=== PATIENT | female | born 1945 | race Caucasian/White ===

== ENCOUNTER 2018-05-05 08:58 | Observation (INO) ==
[2018-05-05] MEDS ORDERED: Sod Chloride 0.9% Inj 1,000 ML IV.CONT SCH (10:30)
--- NOTE | 2018-05-05 10:41 | XR ---
EXAM DATE: 05/05/2018 10:38 AM EDT AGE/SEX: 73 years / Female INDICATIONS: . Double vision for 4 days. CLINICAL DATA: This is the patient's initial encounter. Patient reports that signs and symptoms have been present for 4 - 6 days and indicates a pain score of 0/10. MEDICAL/SURGICAL HISTORY: None. None. COMPARISON: No prior exams available for comparison. FINDINGS: A single AP view of the chest demonstrates the lungs to be symmetrically aerated without evidence of mass, infiltrate or effusion. The cardiomediastinal contours are unremarkable. Osseous structures a re intact. CONCLUSION: No acute intrathoracic disease. Electronically signed by: Dimitry Restrepo MD 05/05/2018 10:40 AM EDT
[2018-05-05 11:19] LABS: Hematocrit 45.4 % (35.0-46.0); Hemoglobin 15.9 gm/dL (11.6-15.3); Mean Corpuscular HGB Conc 35.1 % (32.0-36.0); Mean Corpuscular Hemoglobin 32.9 pg (27.0-34.0); Mean Corpuscular Volume 93.6 fL (80.0-100.0); Mean Platelet Volume 9.7 fL (7.0-11.0); Platelet Count 344 th/mm3 (150-450); Red Blood Count 4.85 mil/mm3 (4.00-5.30); Red Cell Distribution Width 14.4 % (11.6-17.2); White Blood Count 9.7 th/mm3 (4.0-11.0)
[2018-05-05 11:20] LABS: Baso # (Auto) 0.1 th/mm3 (0.0-0.2); Baso % (Auto) 1.3 % (0.0-2.0); Eos # (Auto) 0.4 th/mm3 (0.0-0.4); Eos % (Auto) 4.1 % (0.0-4.0); Lymph % (Auto) 30.4 % (9.0-44.0); Mono % (Auto) 10.7 % (0.0-8.0); Neut # (Auto) 5.2 th/mm3 (1.8-7.7); Neut % (Auto) 53.5 % (16.0-70.0)
[2018-05-05 11:27] LABS: Activated Partial Thrombo Time 27.3 sec (24.3-30.1); Prothrombin Time 10.2 sec (9.8-11.6)
--- NOTE | 2018-05-05 11:30 | CT ---
EXAM DATE: 05/05/2018 11:27 AM EDT AGE/SEX: 73 years / Female INDICATIONS: Headache with double vision. CLINICAL DATA: This is the patient's initial encounter. Patient reports that signs and symptoms have been present for 4 - 6 days and indicates a pain score of 0/10. MEDICAL/SURGICAL HISTORY: Hypertension. Hypothyroidism. None. RADIATION DOSE: 56.77 CTDI (mGy) COMPARISON: No prior exams available for comparison. TECHNIQUE: CT of the head without contrast. Using automated exposure control and adjustment of the mA and/or kV according to patient size, radiation dose was kept as low as reasonably achievable to ob tain optimal diagnostic quality images. DICOM format image data is available electronically for revi ew and comparison. FINDINGS: Cerebrum: The ventricles are normal for age. No evidence of midline shift, mass lesion, hemorrhage or acute infarction. No extraaxial fluid collections are seen. Posterior Fossa: The cerebellum and brainstem are intact. The 4th ventricle is midline. The cerebe llopontine angle is unremarkable. Extracranial: The visualized portion of the orbits is intact. Skull: The calvaria is intact. No evidence of skull fracture. CONCLUSION: 1. Unremarkable CT scan of the brain. Electronically signed by: Dimitry Restrepo MD 05/05/2018 11:29 AM EDT
[2018-05-05 11:44] LABS: Anion Gap 8 meq/L (5-15); Blood Urea Nitrogen 18 mg/dL (7-18); Calcium 9.7 mg/dL (8.5-10.1); Carbon Dioxide 25.6 meq/L (21.0-32.0); Chloride 105 meq/L (98-107); Creatine Kinase 143 U/L (26-192); Glomerular Filtration Rate 66 mL/min (>89); Glucose,Random 77 mg/dL (74-106); Potassium 4.6 meq/L (3.5-5.1); Sodium 139 meq/L (136-145)
[2018-05-05 11:56] LABS: Creatine Kinase MB 1.5 ng/mL (0.5-3.6)
--- NOTE | 2018-05-05 15:07 | ED ---
HPI General Chief Complaint: Neuro Symptoms/Deficit Stated Complaint: Headache / double vision Time Seen by Provider: 05/05/18 10:10 Source: patient and family Mode of arrival: ambulatory Limitations: no limitations History of Present Illness HPI Narrative: The patient is a 73-year-old female with past medical history significant for hypertension, hypercholesterolemia, hypothyroid and GERD presenting with complaint of diplopia and visual disturbances that she not really describe for the past 4 days. She says that the symptoms come and go sometimes last a few seconds sometimes several minutes. She denies any diplopia at point of care at this time. Patient stated that" when I am walking there is something wrong and I have difficulty with depth perception". The patient saw her bog worker yesterday had an evaluation and was told that her eyes were clear. She does have photophobia. She was told that her intraocular pressure was normal Related Data Home Medications Medication Instructions Recorded Confirmed ascorbic acid (vitamin C) [Vitamin 500 mg PO DAILY 05/05/18 05/05/18 C] aspirin [Aspir-81] 81 mg PO DAILY 05/05/18 05/05/18 calcium carbonate [Calcium 500] 500 mg PO BID 05/05/18 05/05/18 ibandronate 70 mg PO QMONTH 05/05/18 05/05/18 levothyroxine 50 mcg PO DAILY 05/05/18 05/05/18 losartan 50 mg PO DAILY 05/05/18 05/05/18 omeprazole 40 mg PO DAILY 05/05/18 05/05/18 propranolol 20 mg PO BID 05/05/18 05/05/18 rosuvastatin 20 mg PO DAILY 05/05/18 05/05/18 Previous Rx's Medication Instructions Recorded clopidogrel [Plavix] 75 mg PO DAILY #30 tab 05/06/18 Allergies Allergy/AdvReac Type Severity Reaction Status Date / Time No Known Allergies Allergy Unverified 05/05/18 09:17 Review of Systems ROS Unobtainable All other systems reviewed negative except as stated in HPI Constitutional Denies fever(s), Denies headache(s) and Denies malaise Eyes Denies blurry vision, Denies change in vision, Reports diplopia, Denies dry eyes , Denies loss of vision, Reports photophobia and Reports other ENT Denies headache(s) and Denies nasal congestion Cardiovascular Denies chest pain Respiratory Denies dyspnea Gastrointestinal Denies abdominal pain Genitourinary Denies difficulty voiding Musculoskeletal Denies myalgias Integumentary/Breasts Denies rash Neurologic Denies headache(s) Psychiatric Denies depression Endocrine Denies polyuria Hematologic/Lymphatic Denies easy bruising [facility] Medical History Medical History FH: cholecystectomy (Acute) GERD (gastroesophageal reflux disease) (Acute) Gastroduodenitis (Acute) Hernia (Acute) Hyperchloremia (Acute) Hypertension (Acute) Hypothyroid (Acute) Right humeral fracture (Acute) Broken wrist (Acute) Heart murmur (Acute) Surgical History Surgical History H/O section (Acute) H/O splenectomy (Acute) History of tonsillectomy (Acute) Hx of appendectomy (Acute) Family History Family History Mother Heart disease Father Heart disease Social History Social History Substance History: No History of Abuse Second Hand Smoke Exposure: No Smoking Status: Former smoker How Often Do You Have a Drink Containing Alcohol: 2 to 3 times a week Recent Travel in [facility] within the Last 8 Weeks: Yes Immunization History Tetanus Immunization: >5 Years Hx Influenza Vaccine This Season: Yes Exam [facility] Head: normocephalic and atraumatic Nose: no nasal discharge and no epistaxis Mouth: moist mucous membranes Eyes Sclera: normal sclerae Pupils: PERRL Neck Neck: trachea midline and no JVD Resp Effort & Inspection: no use of accessory muscles Auscultation: clear to auscultation bilaterally Cardio Rate: regular rate Rhythm: regular rhythm Heart Sounds: no murmurs GI Inspection: non-distended Palpation: soft, no hepatosplenomegaly and nontender Skin General: dry skin (warm) Neuro General: alert, awake, oriented x3, moves all extremities, normal light touch, pain and propioception, no meningeal signs, no focal motor deficits, CN's II-XI intact bilaterally and normal sensation to monofilament Cranial Nerves: CN's II-XI intact bilaterally, PERRL, accommodation normal, EOM intact bilaterally, tongue midline, Symmetric palate elevation and other Speech: speech normal Gait: normal gait Motor: muscle tone normal throughout and no movement abnormalities noted Sensory Exam: no sensory deficits noted Extrem General: normal to inspection, no clubbing, no cyanosis and no edema Psych Mood: congruent mood Affect: normal affect Judgment: judgment good Course Reevaluation(s) Reevaluation #1: Patient was stable vitals. Hypertension did improve latest BP is 128/64. She does have diplopia at times that resolves lasting anywhere from a few seconds to a couple minutes. Time: 14:36 Initial Documented Vital Signs Temperature 97.7 F 05/05/18 09:03 Pulse Rate 72 05/05/18 09:03 Respiratory Rate 20 05/05/18 09:03 Blood Pressure 189/81 H 05/05/18 09:03 Pulse Oximetry 95 05/05/18 09:03 Last Documented Vital Signs Temperature 97.7 F 05/06/18 00:59 Pulse Rate 70 05/06/18 08:00 Respiratory Rate 18 05/06/18 00:59 Blood Pressure 132/62 05/06/18 00:59 Pulse Oximetry 94 L 05/06/18 08:00 Critical Care Time Critical Care Time: No Total Critical Care Time: 30 NIH Stroke Scale NIHSS Time Completed NIHSS Time Completed: 10:11 NIH Stroke Scale Level of Consciousness: 0-Alert Orientation Questions: 0-Answers both correct Responds to Commands: 0-Both tasks correct Gaze Eye Movement: 0-Horizontal movement WNL Visual Borden: 0-No visual field defect Facial Movement: 0-Normal Motor Functions Arm LEFT: 0-No drift Motor Functions Arm RIGHT: 0-No drift Motor Functions Leg LEFT: 0-No drift Motor Functions Leg RIGHT: 0-No drift Limb Ataxia: 0-No ataxia Sensory Loss: 0-No sensory loss Best Language: 0-Normal Articulation: 0-Normal Extinction or Inattention Sensory: 0-Absent Total: 0 Medical Decision Making MDM Narrative Medical decision making narrative: Intermittent double vision with a negative initial evaluation with CT head. Labs unremarkable. Due to persistence of symptoms will admit the patient and have her evaluated by neurology. Symptoms started 4 days ago the patient is not a TPA candidate. MRI ORDERED AND RESULTS ARE PENDING AT THIS TIME Lab Data Lab results reviewed: Yes I reviewed the patient's lab results. Result diagrams: 05/05/18 09:30 05/05/18 09:30 Lab Results 05/05/18 05/05/18 05/05/18 Range/Units 09:30 09:30 09:30 WBC 9.7 (4.0-11.0) th/mm3 RBC 4.85 (4.00-5.30) mil/mm3 Hgb 15.9 H (11.6-15.3) gm/dL Hct 45.4 (35.0-46.0) % MCV 93.6 (80.0-100.0) fL MCH 32.9 (27.0-34.0) pg MCHC 35.1 (32.0-36.0) % RDW 14.4 (11.6-17.2) % Plt Count 344 (150-450) th/mm3 MPV 9.7 (7.0-11.0) fL Neut % (Auto) 53.5 (16.0-70.0) % Lymph % (Auto) 30.4 (9.0-44.0) % [place] % (Auto) 10.7 H (0.0-8.0) % Eos % (Auto) 4.1 H (0.0-4.0) % Baso % (Auto) 1.3 (0.0-2.0) % Neut # (Auto) 5.2 (1.8-7.7) th/mm3 Lymph # (Auto) 3.0 (1.0-4.8) th/mm3 [place] # (Auto) 1.0 H (0.0-0.9) th/mm3 Eos # (Auto) 0.4 (0.0-0.4) th/mm3 Baso # (Auto) 0.1 (0.0-0.2) th/mm3 WBC Differential . Differential Comment Auto diff final ESR (0-30) mm/hr PT 10.2 (9.8-11.6) sec INR 1.0 Ratio APTT 27.3 (24.3-30.1) sec Sodium 139 (136-145) meq/L Potassium 4.6 (3.5-5.1) meq/L Chloride 105 (98-107) meq/L Carbon Dioxide 25.6 (21.0-32.0) meq/L Anion Gap 8 (5-15) meq/L BUN 18 (7-18) mg/dL Creatinine 0.85 (0.50-1.00) mg/dL Estimated GFR 66 L (>89) mL/min POC Glucose (68-110) mg/dl Random Glucose 77 (74-106) mg/dL Hemoglobin A1c (4.3-6.0) % Calcium 9.7 (8.5-10.1) mg/dL Total Creatine Kinase 143 (26-192) U/L CK-MB (CK-2) 1.5 (0.5-3.6) ng/mL Troponin I Less than 0.02 L (0.02-0.05) ng/mL C-Reactive Protein (0.00-0.30) mg/dL Triglycerides (42-150) mg/dL Cholesterol (120-200) mg/dL LDL Cholesterol, Calc (0-99) mg/dL HDL Cholesterol (40.0-60.0) mg/dL Cholesterol/HDL Ratio Ratio Vitamin B12 (193-986) pg/mL TSH (0.358-3.740) uIU/mL Thyroxine (T4) (4.8-13.9) mcg/dL RPR (Nonreactive) 05/05/18 05/05/18 05/05/18 Range/Units 09:30 09:30 09:30 WBC (4.0-11.0) th/mm3 RBC (4.00-5.30) mil/mm3 Hgb (11.6-15.3) gm/dL Hct (35.0-46.0) % MCV (80.0-100.0) fL MCH (27.0-34.0) pg MCHC (32.0-36.0) % RDW (11.6-17.2) % Plt Count (150-450) th/mm3 MPV (7.0-11.0) fL Neut % (Auto) (16.0-70.0) % Lymph % (Auto) (9.0-44.0) % [place] % (Auto) (0.0-8.0) % Eos % (Auto) (0.0-4.0) % Baso % (Auto) (0.0-2.0) % Neut # (Auto) (1.8-7.7) th/mm3 Lymph # (Auto) (1.0-4.8) th/mm3 [place] # (Auto) (0.0-0.9) th/mm3 Eos # (Auto) (0.0-0.4) th/mm3 Baso # (Auto) (0.0-0.2) th/mm3 WBC Differential Differential Comment ESR (0-30) mm/hr PT (9.8-11.6) sec INR Ratio APTT (24.3-30.1) sec Sodium (136-145) meq/L Potassium (3.5-5.1) meq/L Chloride (98-107) meq/L Carbon Dioxide (21.0-32.0) meq/L Anion Gap (5-15) meq/L BUN (7-18) mg/dL Creatinine (0.50-1.00) mg/dL Estimated GFR (>89) mL/min POC Glucose (68-110) mg/dl Random Glucose (74-106) mg/dL Hemoglobin A1c (4.3-6.0) % Calcium (8.5-10.1) mg/dL Total Creatine Kinase (26-192) U/L CK-MB (CK-2) (0.5-3.6) ng/mL Troponin I (0.02-0.05) ng/mL C-Reactive Protein 0.77 H (0.00-0.30) mg/dL Triglycerides (42-150) mg/dL Cholesterol (120-200) mg/dL LDL Cholesterol, Calc (0-99) mg/dL HDL Cholesterol (40.0-60.0) mg/dL Cholesterol/HDL Ratio Ratio Vitamin B12 961 (193-986) pg/mL TSH 2.390 (0.358-3.740) uIU/mL Thyroxine (T4) 12.3 (4.8-13.9) mcg/dL RPR (Nonreactive) 05/05/18 05/05/18 05/05/18 Range/Units 18:42 21:34 21:34 WBC (4.0-11.0) th/mm3 RBC (4.00-5.30) mil/mm3 Hgb (11.6-15.3) gm/dL Hct (35.0-46.0) % MCV (80.0-100.0) fL MCH (27.0-34.0) pg MCHC (32.0-36.0) % RDW (11.6-17.2) % Plt Count (150-450) th/mm3 MPV (7.0-11.0) fL Neut % (Auto) (16.0-70.0) % Lymph % (Auto) (9.0-44.0) % [place] % (Auto) (0.0-8.0) % Eos % (Auto) (0.0-4.0) % Baso % (Auto) (0.0-2.0) % Neut # (Auto) (1.8-7.7) th/mm3 Lymph # (Auto) (1.0-4.8) th/mm3 [place] # (Auto) (0.0-0.9) th/mm3 Eos # (Auto) (0.0-0.4) th/mm3 Baso # (Auto) (0.0-0.2) th/mm3 WBC Differential Differential Comment ESR 12 (0-30) mm/hr PT (9.8-11.6) sec INR Ratio APTT (24.3-30.1) sec Sodium (136-145) meq/L Potassium (3.5-5.1) meq/L Chloride (98-107) meq/L Carbon Dioxide (21.0-32.0) meq/L Anion Gap (5-15) meq/L BUN (7-18) mg/dL Creatinine (0.50-1.00) mg/dL Estimated GFR (>89) mL/min POC Glucose 118 H (68-110) mg/dl Random Glucose (74-106) mg/dL Hemoglobin A1c (4.3-6.0) % Calcium (8.5-10.1) mg/dL Total Creatine Kinase (26-192) U/L CK-MB (CK-2) (0.5-3.6) ng/mL Troponin I (0.02-0.05) ng/mL C-Reactive Protein (0.00-0.30) mg/dL Triglycerides (42-150) mg/dL Cholesterol (120-200) mg/dL LDL Cholesterol, Calc (0-99) mg/dL HDL Cholesterol (40.0-60.0) mg/dL Cholesterol/HDL Ratio Ratio Vitamin B12 (193-986) pg/mL TSH (0.358-3.740) uIU/mL Thyroxine (T4) (4.8-13.9) mcg/dL RPR Nonreactive (Nonreactive) 05/06/18 05/06/18 Range/Units 05:56 05:56 WBC (4.0-11.0) th/mm3 RBC (4.00-5.30) mil/mm3 Hgb (11.6-15.3) gm/dL Hct (35.0-46.0) % MCV (80.0-100.0) fL MCH (27.0-34.0) pg MCHC (32.0-36.0) % RDW (11.6-17.2) % Plt Count (150-450) th/mm3 MPV (7.0-11.0) fL Neut % (Auto) (16.0-70.0) % Lymph % (Auto) (9.0-44.0) % [place] % (Auto) (0.0-8.0) % Eos % (Auto) (0.0-4.0) % Baso % (Auto) (0.0-2.0) % Neut # (Auto) (1.8-7.7) th/mm3 Lymph # (Auto) (1.0-4.8) th/mm3 [place] # (Auto) (0.0-0.9) th/mm3 Eos # (Auto) (0.0-0.4) th/mm3 Baso # (Auto) (0.0-0.2) th/mm3 WBC Differential Differential Comment ESR (0-30) mm/hr PT (9.8-11.6) sec INR Ratio APTT (24.3-30.1) sec Sodium (136-145) meq/L Potassium (3.5-5.1) meq/L Chloride (98-107) meq/L Carbon Dioxide (21.0-32.0) meq/L Anion Gap (5-15) meq/L BUN (7-18) mg/dL Creatinine (0.50-1.00) mg/dL Estimated GFR (>89) mL/min POC Glucose (68-110) mg/dl Random Glucose (74-106) mg/dL Hemoglobin A1c 5.6 (4.3-6.0) % Calcium (8.5-10.1) mg/dL Total Creatine Kinase (26-192) U/L CK-MB (CK-2) (0.5-3.6) ng/mL Troponin I (0.02-0.05) ng/mL C-Reactive Protein (0.00-0.30) mg/dL Triglycerides 196 H (42-150) mg/dL Cholesterol 159 (120-200) mg/dL LDL Cholesterol, Calc 81 (0-99) mg/dL HDL Cholesterol 39.0 L (40.0-60.0) mg/dL Cholesterol/HDL Ratio 4.07 Ratio Vitamin B12 (193-986) pg/mL TSH (0.358-3.740) uIU/mL Thyroxine (T4) (4.8-13.9) mcg/dL RPR (Nonreactive) Imaging Data Radiologist's impression: Carotid Doppler Study 05/05/18 00:00 CONCLUSION: Mild atherosclerotic plaquing at the left carotid bifurcation. No focal high-grade or hemodynamically significant stenosis is demonstrated bilaterally. Head MRA 05/05/18 00:00 CONCLUSION: 1. Examination within normal limits for age. Neck MRA 05/05/18 00:00 CONCLUSION: 1. No hemodynamically significant stenosis in the carotid arteries bilaterally. Vertebral arteries are patent. Percent stenosis is calculated using the diameter of the stenotic region over the diameter of the normal distal internal carotid artery Chest X-Ray 05/05/18 10:23 CONCLUSION: No acute intrathoracic disease. Head CT 05/05/18 10:23 CONCLUSION: 1. Unremarkable CT scan of the brain. Head MRI 05/05/18 14:31 CONCLUSION: 1. No acute findings. Minimal white matter ischemic change. ECG Data Attestation: I personally reviewed and interpreted this ECG as follows: Interpretation: EKG obtained at 1441 revealed sinus rhythm with a first-degree block in the rate of 62 bpm. QTC of 420 normal VA intervals. Normal axis nonspecific ST-T wave abnormalities Discharge Plan Discharge Disposition Patient Disposition: 30 Still Patient Discharge Condition Condition: Stable Discharge Order Discharge Orders: Discharge Order (Routine); Ordered 05/06/18 Ordered By: Osmar Marsh Discharge Details Diagnosis: Transient cerebral ischemia Physicians Team ED Provider: Matthew Rodas Primary Care Provider: UNKNOWN, Attending Provider: Osmar Marsh Other Providers: Martín Crump Discharge Interventions Interventions: ED Discharge Assessment Last Done: 05/05/18 18:48 Status ED Status: Left Department Discharge Information Discharge Date/Time: 05/05/18 18:49
[2018-05-05] MEDS ORDERED: Enoxaparin Inj 40 MG/0.4 ML Syringe SQ SCH (16:00)
--- NOTE | 2018-05-05 16:09 | US ---
EXAM DATE: 05/05/2018 4:06 PM EDT AGE/SEX: 73 years / Female INDICATIONS: Transient ischemic attack. CLINICAL DATA: This is the patient's initial encounter. Patient reports that signs and symptoms have been present for 2 days and indicates a pain score of 0/10. MEDICAL/SURGICAL HISTORY: Hypothyroidism. Broken wrist. GERD. Heart murmur. Gastroduodenitis. H ernia. HTN. Right humeral fracture. Cholecystectomy. section. Splenectomy. Tonsillectomy . Appendectomy. COMPARISON: No prior exams available for comparison. VELOCITY PARAMETERS: ICA/CCA Ratio: Right 1.2 , Left 1.0 ICA: Right 144 cm/sec, Left 120 cm/sec CCA: Right 116 cm/sec, Left 126 cm/sec ECA: Right 121 cm/sec, Left 118 cm/sec Vertebral: Right 49 cm/sec antegrade, Left 67 cm/sec retrograde FINDINGS: Right Carotid: No significant plaque is visualized.The waveforms are within normal limits. Left Carotid: Mild arteriosclerotic plaque is visualized. The waveforms are within normal limits. Other: None. CONCLUSION: Mild atherosclerotic plaquing at the left carotid bifurcation. No focal high-grade or hem odynamically significant stenosis is demonstrated bilaterally. Electronically signed by: Dimitry Restrepo MD 05/05/2018 4:07 PM EDT
--- NOTE | 2018-05-05 16:10 | P.HPIM ---
History of Present Illness Primary Care Physician: UNKNOWN History of Present Illness: 73-year-old female with history of hypertension, hyperlipidemia, benign familial tremor, hypothyroidism who presents with a four-day history of diplopia /difficulty with depth perception. No other focal signs or symptoms. She reports vision intact, however difficulties with depth perception. She reports light sensitivity in her left eye. She saw an production pattern maker yesterday who says there is no ophthalmologic problem, that it was most likely neurologic and recommend that she see a neurologist. Patient has been on vacation from [place] starting about 5 days ago. She has been drinking 2-3 drinks per day on vacation whereas she typically drinks only occasionally. otherwise patient denies any chest pain, shortness of breath, nausea, vomiting, fevers, chills, diarrhea, constipation. Inpatient Certification: I certify that the inpatient services were ordered in accordance with Medicare regulations governing the order. This includes certification that hospital inpatient services are reasonable and necessary and in the case of services not specified as inpatient-only under 42 CFR 419.22(n), that they are appropriately provided as inpatient services in accordance to with the 2-midnight benchmark under 43 CFR 412.3(e) Review of Systems Performed and negative except for HPI and PMH PMFSH - History History Provided By: Patient - Medical History Medical History: Medical History (Last Reviewed 05/05/18 @ 15:33 by Matthew Rodas DO) FH: cholecystectomy GERD (gastroesophageal reflux disease) Gastroduodenitis Hernia Hyperchloremia Hypertension Hypothyroid Right humeral fracture Broken wrist Heart murmur - Surgical History Surgical History: Surgical History (Last Reviewed 05/05/18 @ 15:33 by Matthew Rodas DO) H/O section H/O splenectomy Hx of appendectomy History of tonsillectomy - Family History Family History: Family History (Last Updated 05/05/18 @ 16:02 by Osmar Marsh MD) Mother Heart disease Father Heart disease - Tobacco History Second Hand Smoke Exposure: No Smoking Status: Former smoker - Alcohol History How Often Do You Have a Drink Containing Alcohol: 2 to 3 times a week - Substance Use History Substance History: No History of Abuse - Immunization History Tetanus Immunization: >5 Years Hx Influenza Vaccine This Season: Yes Medications and Allergies Active Medications: Active Medications Enoxaparin Sodium (Lovenox Inj) 40 mg SQ Q24H [facility] Last Admin: 05/05/18 15:55 Dose: 40 mg Sodium Chloride (Ns Inj) 1,000 mls @ 70 mls/hr IV.CONT .[id number] [facility] Stop: 05/06/18 00:47 Last Admin: 05/05/18 12:06 Dose: 70 mls/hr Sodium Chloride (Ns Flush) 2 ml IV.FLUSH PRN PRN PRN Reason: FLUSH AFTER USING IV ACCESS Last Admin: 05/05/18 12:06 Dose: 2 ml Allergies Allergy/AdvReac Type Severity Reaction Status Date / Time No Known Allergies Allergy Unverified 05/05/18 09:17 Home Medications Medication Instructions Recorded Confirmed Type ascorbic acid (vitamin C) [Vitamin 500 mg PO DAILY 05/05/18 05/05/18 History C] aspirin [Aspir-81] 81 mg PO DAILY 05/05/18 05/05/18 History calcium carbonate [Calcium 500] 500 mg PO BID 05/05/18 05/05/18 History ibandronate 70 mg PO QMONTH 05/05/18 05/05/18 History levothyroxine 50 mcg PO DAILY 05/05/18 05/05/18 History losartan 50 mg PO DAILY 05/05/18 05/05/18 History omeprazole 40 mg PO DAILY 05/05/18 05/05/18 History propranolol 20 mg PO BID 05/05/18 05/05/18 History rosuvastatin 20 mg PO DAILY 05/05/18 05/05/18 History Exam Vital signs: Vital Signs 05/05/18 09:03 05/05/18 09:28 05/05/18 13:00 Temperature 97.7 F Pulse Rate 72 67 68 Respiratory Rate 20 18 Blood Pressure 189/81 H 149/72 H 128/64 Pulse Oximetry 95 96 95 05/05/18 15:30 Temperature Pulse Rate 80 Respiratory Rate 20 Blood Pressure 137/101 H Pulse Oximetry Intake & Output 05/04/18 05/05/18 05/05/18 18:59 06:59 18:59 Weight 81.647 kg Narrative: GENERAL: sitting in bed. Appears comfortable. Alert and oriented 3. SKIN: Warm and dry. HEAD: Normocephalic. EYES: No scleral icterus. No injection or drainage. No diplopia. Pupils equal round and reactive to light and accommodation bilaterally. Strength intact bilaterally. Slight tremor on the left. NECK: Supple, trachea midline. No JVD or lymphadenopathy. CARDIOVASCULAR: Regular rate and rhythm without murmurs, gallops, or rubs. RESPIRATORY: Breath sounds equal bilaterally. No accessory muscle use. GASTROINTESTINAL: Abdomen soft, non-tender, nondistended. MUSCULOSKELETAL: No cyanosis, or edema. BACK: Nontender without obvious deformity. No CVA tenderness. Results - Labs CBC & Chem 7: 05/05/18 09:30 05/05/18 09:30 Labs: Short CBC 05/05/18 Range/Units 09:30 WBC 9.7 (4.0-11.0) th/mm3 Hgb 15.9 H (11.6-15.3) gm/dL Hct 45.4 (35.0-46.0) % Plt Count 344 (150-450) th/mm3 BMP 05/05/18 09:30 Sodium 139 Potassium 4.6 Chloride 105 Carbon Dioxide 25.6 BUN 18 Creatinine 0.85 Calcium 9.7 Cardiac Enzymes 05/05/18 Range/Units 09:30 Total Creatine Kinase 143 (26-192) U/L CK-MB (CK-2) 1.5 (0.5-3.6) ng/mL Troponin I Less than 0.02 L (0.02-0.05) ng/mL - Imaging Impressions Chest X-Ray 05/05/18 10:23 CONCLUSION: No acute intrathoracic disease. Head CT 05/05/18 10:23 CONCLUSION: 1. Unremarkable CT scan of the brain. Caprini VTE Risk Assessment Caprini VTE Risk Assessment: Moderate/High Risk (score >= 2) Caprini Risk Assessment Model: Point Value = 1 Point Value = 2 Point Value = 3 Point Value = 5 Age 41-60 Minor surgery BMI > 25 kg/m2 Swollen legs Varicose veins or History of unexplained or recurrent spontaneous Oral contraceptives or hormone replacement Sepsis (< 1 month) Serious lung disease, including pneumonia (< 1 month) Abnormal pulmonary function Acute myocardial infarction Congestive heart failure (< 1 month) History of inflammatory bowel disease Medical patient at bed rest Age 61-74 Arthroscopic surgery Major open surgery (> 45 min) Laparoscopic surgery (> 45 min) Malignancy Confined to bed (> 72 hours) Immobilizing plaster cast Central venous access Age >= 75 History of VTE Family history of VTE Factor V Leiden Prothrombin [id number] Lupus anticoagulant Anticardiolipin antibodies Elevated serum homocysteine Heparin-induced thrombocytopenia Other congenital or acquired thrombophilia Stroke (< 1 month) Elective arthroplasty Hip, pelvis, or leg fracture Acute spinal cord injury (< 1 month) Prophylaxis Regimen: Total Risk Factor Score Risk Level Prophylaxis Regimen 0-1 Low Early ambulation 2 Moderate Order ONE of the following: *Sequential Compression Device (SCD) *Heparin 5000 units SQ BID 3-4 Higher Order ONE of the following medications: *Heparin 5000 units SQ TID *Enoxaparin/Lovenox 40 mg SQ daily (WT < 150 kg, CrCl > 30 mL/min) *Enoxaparin/Lovenox 30 mg SQ daily (WT < 150 kg, CrCl > 10-29 mL/min) *Enoxaparin/Lovenox 30 mg SQ BID (WT < 150 kg, CrCl > 30 mL/min) AND/OR *Sequential Compression Device (SCD) 5 or more Highest Order ONE of the following medications: *Heparin 5000 units SQ TID (Preferred with Epidurals) *Enoxaparin/Lovenox 40 mg SQ daily (WT < 150 kg, CrCl > 30 mL/min) *Enoxaparin/Lovenox 30 mg SQ daily (WT < 150 kg, CrCl > 10-29 mL/min) *Enoxaparin/Lovenox 30 mg SQ BID (WT < 150 kg, CrCl > 30 mL/min) AND *Sequential Compression Device (SCD) Assessment and Plan - Plan //Diplopia = Likely secondary to poor sleep, increased alcohol consumption, vacation. = CT head negative. = MRI pending = Continue home aspirin. = We will order echocardiogram, carotid ultrasound, telemetry. Consult neurology. //Hypothyroidism. Chronic. Continue home medications //Hypertension. Chronic. Blood pressure acceptable. Continue home medications //Hyperlipidemia. Chronic. Continue medication. //Benign familial essential tremor. Continue propranolol. Discharge Planning: Pending neurology clearance.
--- NOTE | 2018-05-05 17:12 | MB ---
cc: Martín Quinones MD DATE: 05/05/2018 HISTORY OF PRESENT ILLNESS: This is a 73-year-old right-handed woman with hypertension, hypercholesterolemia, remote duodenitis, who takes a baby aspirin a day. For the last 4 days, she has had double vision on and off, stays for maybe 15 or 30 minutes. When she covers one eye or the other, it seems to go away. Sometimes at a distance, sometimes up close. REVIEW OF SYSTEMS: She denies any diabetes, headache, chest pain, or palpitations. She feels like the corner of her eye is a little tender. No trouble swallowing. PAST MEDICAL HISTORY: She denied any history of [place], stent, angioplasty, AFib, Coumadin; renal, hepatic or pulmonary disease; thyroid disease, lupus, cancer, seizure, stroke. SOCIAL HISTORY: Not a smoker, has about 2 drinks a day, more when she is on vacation. Lives with her . FAMILY HISTORY: Positive for cancer in a brother. Negative for seizure or stroke. MEDICATIONS: She does take a baby aspirin a day. HOME MEDICATIONS: Rosuvastatin, thyroid medicine, propranolol, omeprazole, 81 of aspirin. PHYSICAL EXAMINATION: VITAL SIGNS: 64, 20, 137/101-128/64, 85-113. NECK: There were no carotid bruits. HEART: Regular rhythm. I did not detect a murmur. NEUROLOGIC: Pupils are equal. Visual pickering are full. Extraocular movements intact without nystagmus. There was no double vision now on eye movements in either direction or at a distance or up close. Face is symmetric with normal sensation. Tongue was midline. There is no drift. She has normal strength in upper and lower extremities bilaterally. DTRs are trace throughout. Toes downgoing bilaterally. Pinprick is intact throughout. She is not ataxic on [id number]. Speech is fluent. She is not aphasic. No apparent distress. LABORATORY DATA: CBC is normal. Basic metabolic profile was normal. CPK, troponin negative. Coags normal. IMAGING STUDIES: She had a CAT scan of her brain that was negative. CT showed some white matter changes bilaterally. I do not see anything major on the CT or about the orbits. IMPRESSION AND RECOMMENDATIONS: Some intermittent double vision. Possibility to be early myasthenia gravis or transient ischemic attack. We will switch her to Plavix. Check an MRI of the brain, MRA [place] and neck. Probably will not find too much. ____. Her temples were nontender, but she felt a little bit of tenderness just in the lateral aspect of the left orbit. We will check a sedimentation rate on her. We will switch her to Plavix and stop her aspirin in 3 days. MD ELISEO Donaldson/VIVIEN , 04:53 PM , 05:10 PM
[2018-05-05 19:01] LABS: T4 (Thyroxine) 12.3 mcg/dL (4.8-13.9)
[2018-05-05] MEDS ORDERED: Gadobutrol PF 10 MMOL/10 ML Vial (for RAD) IV.SIG ONE (19:46)
--- NOTE | 2018-05-05 23:10 | MR ---
EXAM DATE: 05/05/2018 8:21 PM EDT AGE/SEX: 73 years / Female INDICATIONS: . Diplopia. CLINICAL DATA: This is the patient's initial encounter. Patient reports that signs and symptoms have been present for 1 day and indicates a pain score of 0/10. MEDICAL/SURGICAL HISTORY: Gastroesophageal reflux disease. Hypothyroidism. Hypertension. Appe ndectomy. Cholecystectomy. Tonsillectomy. Splenectomy. Right humerus surgery. Rhinoplasty. COMPARISON: No prior exams available for comparison. TECHNIQUE: Multiplanar, multisequence examination of the brain was performed without and with 10 ml G adavist (gadobutrol) contrast as a single exam dose. FINDINGS: Minimal white matter ischemic changes. No mass, hemorrhage or shift. No hydrocephalus. No abnormal ex tra-axial fluid. No abnormal enhancing lesions post contrast. No recent infarction. No sellar mass. CONCLUSION: 1. No acute findings. Minimal white matter ischemic change. Electronically signed by: Kojo Junior MD 05/05/2018 11:09 PM EDT
--- NOTE | 2018-05-05 23:16 | MR ---
EXAM DATE: 05/05/2018 7:46 PM EDT AGE/SEX: 73 years / Female INDICATIONS: . Diplopia. CLINICAL DATA: This is the patient's initial encounter. Patient reports that signs and symptoms have been present for 1 day and indicates a pain score of 0/10. MEDICAL/SURGICAL HISTORY: Gastroesophageal reflux disease. Hypothyroidism. Hypertension. Appe ndectomy. Tonsillectomy. Cholecystectomy. Splenectomy. Rhinoplasty. Right humerus surgery. COMPARISON: No prior exams available for comparison. TECHNIQUE: 3D [id number] MRA was performed. Source images, multiplanar STS MIP, and 3D volum e MIP reconstructions were reviewed. FINDINGS: There is excellent visualization of the major intracranial arteries out to the second-order branch ve ssels. There is no evidence for aneurysm, vessel truncation or stenosis, and no evidence for vascula r malformation. CONCLUSION: 1. Examination within normal limits for age. Electronically signed by: Kojo Junior MD 05/05/2018 11:15 PM EDT
--- NOTE | 2018-05-05 23:21 | MR ---
EXAM DATE: 05/05/2018 8:28 PM EDT AGE/SEX: 73 years / Female INDICATIONS: Stenosis. CLINICAL DATA: This is the patient's initial encounter. Patient reports that signs and symptoms have been present for 1 day and indicates a pain score of 0/10. MEDICAL/SURGICAL HISTORY: Gastroesophageal reflux disease. Hypertension. Hypothyroidism. Appe ndectomy. Cholecystectomy. Tonsillectomy. Splenectomy. Right humerus surgery. Rhinoplasty. COMPARISON: No prior exams available for comparison. TECHNIQUE: 10 ml Gadavist (gadobutrol) contrast infused MRA (single exam dose) of the extracranial circulation was performed using a neurovascular coil. Postprocessing was performed, including rotati ng sub-volume maximum intensity projections of each carotid artery, rotating full-volume maximum inte nsity projections of both carotid arteries, sagittal and coronal sliding thin-slab reformations of ea ch carotid artery, and left oblique sliding thin-slab reformation through the aortic arch to include the origin of the arch branch vessels. FINDINGS: Aortic Arch : There is a three-vessel origin of the great vessels from the aorta. No evidence of o stial narrowing. Right Carotid : The common carotid artery is intact. The carotid bulb has a normal configuration wi thout ulceration or narrowing. The internal carotid artery lumen is smooth without stenosis. The ex ternal carotid artery is intact. Left Carotid : The common carotid artery is intact. The carotid bulb has a normal configuration wit hout ulceration or narrowing. The internal carotid artery lumen is smooth without stenosis. The ext ernal carotid artery is intact. Vertebrals : The vertebral arteries have a symmetric diameter. No stenotic lesions are seen. CONCLUSION: 1. No hemodynamically significant stenosis in the carotid arteries bilaterally. Vertebral arteries a re patent. Percent stenosis is calculated using the diameter of the stenotic region over the diameter of the nor mal distal internal carotid artery Electronically signed by: Kojo Junior MD 05/05/2018 11:20 PM EDT
--- NOTE | 2018-05-06 07:24 | P.PNNEU ---
Subjective Subjective Comments: sr Active Medications: Active Medications Aspirin (Ecotrin) 81 mg PO DAILY [facility] Atorvastatin Calcium (Lipitor) 40 mg PO DAILY [facility] Clopidogrel Bisulfate (Plavix) 75 mg PO DAILY [facility] Last Admin: 05/05/18 21:46 Dose: 75 mg Enoxaparin Sodium (Lovenox Inj) 40 mg SQ Q24H [facility] Last Admin: 05/05/18 15:55 Dose: 40 mg Levothyroxine Sodium (Synthroid) 50 mcg PO DAILY [facility] Losartan Potassium (Cozaar) 50 mg PO DAILY [facility] Propranolol HCl (Inderal) 20 mg PO BID [facility] Last Admin: 05/05/18 21:46 Dose: Not Given Sodium Chloride (Ns Flush) 2 ml IV.FLUSH PRN PRN PRN Reason: FLUSH AFTER USING IV ACCESS Last Admin: 05/05/18 12:06 Dose: 2 ml Allergies/Adverse Reactions: Allergies Allergy/AdvReac Type Severity Reaction Status Date / Time No Known Allergies Allergy Unverified 05/05/18 09:17 Physical Exam Vital signs: Vital Signs 05/05/18 09:03 05/05/18 09:28 05/05/18 13:00 Temperature 97.7 F Pulse Rate 72 67 68 Respiratory Rate 20 18 18 Blood Pressure 189/81 H 149/72 H 128/64 Pulse Oximetry 95 96 95 05/05/18 15:30 05/05/18 16:59 05/05/18 18:59 Temperature 97.6 F 97.6 F Pulse Rate 80 66 66 Respiratory Rate 20 14 16 Blood Pressure 137/101 H 119/58 L 138/65 Pulse Oximetry 93 L 93 L 05/06/18 00:15 05/06/18 00:59 05/06/18 04:19 Temperature 97.7 F Pulse Rate 70 65 74 Respiratory Rate 18 Blood Pressure 132/62 Pulse Oximetry 94 L Intake & Output 05/05/18 05/06/18 05/06/18 18:59 06:59 18:59 Intake Total 1640 / 1640 Balance 1640 / 1640 Weight 93.2 kg Intake: IV 1000 / 1000 NS Inj 1,000 ML @ 70 mls/hr IV. 1000 / 1000 CONT .[id number] [facility] Rx#:[id number] Oral 640 / 640 Other: # Voids 2 Weight On Admission 93.2 kg Narrative: awake alert sees me as double right in front of her then says blurry but pen is not nl spech movement and face Objective Laboratory Results - last 24 hr 05/05/18 05/05/18 05/05/18 09:30 09:30 09:30 WBC 9.7 RBC 4.85 Hgb 15.9 H Hct 45.4 MCV 93.6 MCH 32.9 MCHC 35.1 RDW 14.4 Plt Count 344 MPV 9.7 Neut % (Auto) 53.5 Lymph % (Auto) 30.4 [place] % (Auto) 10.7 H Eos % (Auto) 4.1 H Baso % (Auto) 1.3 Neut # (Auto) 5.2 Lymph # (Auto) 3.0 [place] # (Auto) 1.0 H Eos # (Auto) 0.4 Baso # (Auto) 0.1 WBC Differential . Differential Comment Auto diff final ESR PT 10.2 INR 1.0 APTT 27.3 Sodium 139 Potassium 4.6 Chloride 105 Carbon Dioxide 25.6 Anion Gap 8 BUN 18 Creatinine 0.85 Estimated GFR 66 L POC Glucose Random Glucose 77 Calcium 9.7 Total Creatine Kinase 143 CK-MB (CK-2) 1.5 Troponin I Less than 0.02 L C-Reactive Protein Vitamin B12 TSH Thyroxine (T4) 05/05/18 05/05/18 05/05/18 09:30 09:30 09:30 WBC RBC Hgb Hct MCV MCH MCHC RDW Plt Count MPV Neut % (Auto) Lymph % (Auto) [place] % (Auto) Eos % (Auto) Baso % (Auto) Neut # (Auto) Lymph # (Auto) [place] # (Auto) Eos # (Auto) Baso # (Auto) WBC Differential Differential Comment ESR PT INR APTT Sodium Potassium Chloride Carbon Dioxide Anion Gap BUN Creatinine Estimated GFR POC Glucose Random Glucose Calcium Total Creatine Kinase CK-MB (CK-2) Troponin I C-Reactive Protein 0.77 H Vitamin B12 961 TSH 2.390 Thyroxine (T4) 12.3 05/05/18 05/05/18 18:42 21:34 WBC RBC Hgb Hct MCV MCH MCHC RDW Plt Count MPV Neut % (Auto) Lymph % (Auto) [place] % (Auto) Eos % (Auto) Baso % (Auto) Neut # (Auto) Lymph # (Auto) [place] # (Auto) Eos # (Auto) Baso # (Auto) WBC Differential Differential Comment ESR 12 PT INR APTT Sodium Potassium Chloride Carbon Dioxide Anion Gap BUN Creatinine Estimated GFR POC Glucose 118 H Random Glucose Calcium Total Creatine Kinase CK-MB (CK-2) Troponin I C-Reactive Protein Vitamin B12 TSH Thyroxine (T4) Review/Management - Review/Management Plan: imp mri./a neg esr and crp nl ldl pend plan is plavix and she can call for the mg labs not for another week back she could dc and fu [place] on plavix evidently deborah has seen her o/p and cleared her but if not MD she should see one o/p fu ldl
[2018-05-06 07:51] LABS: Chol/HDL Ratio 4.07 Ratio
[2018-05-06] MEDS ORDERED: Levothyroxine 50 MCG Tablet PO SCH (09:00)
--- NOTE | 2018-05-06 11:31 | P.PNIM ---
Subjective Interval history: This is usually all right. Denies any headache or unilateral weight. Vision unchanged. She states her audio video repairer she [facility]. Physical Exam Vital signs: Vital Signs 05/05/18 13:00 05/05/18 15:30 05/05/18 16:59 Temperature 97.6 F Pulse Rate 68 80 66 Respiratory Rate 18 20 14 Blood Pressure 128/64 137/101 H 119/58 L Pulse Oximetry 95 93 L 05/05/18 18:59 05/06/18 00:15 05/06/18 00:59 Temperature 97.6 F 97.7 F Pulse Rate 66 70 65 Respiratory Rate 16 18 Blood Pressure 138/65 132/62 Pulse Oximetry 93 L 94 L 05/06/18 04:19 Temperature Pulse Rate 74 Respiratory Rate Blood Pressure Pulse Oximetry Intake & Output 05/05/18 05/06/18 05/06/18 18:59 06:59 18:59 Intake Total 1640 / 1640 Balance 1640 / 1640 Weight 93.2 kg Intake: IV 1000 / 1000 NS Inj 1,000 ML @ 70 mls/hr IV. 1000 / 1000 CONT .[id number] [facility] Rx#:[id number] Oral 640 / 640 Other: # Voids 2 Weight On Admission 93.2 kg Narrative: GENERAL: Patient sitting up in bed. Appears comfortable. SKIN: Warm and dry. HEAD: Normocephalic. EYES: No scleral icterus. No injection or drainage. NECK: Supple, trachea midline. No JVD. CARDIOVASCULAR: Regular rate and rhythm without murmurs, gallops, or rubs. RESPIRATORY: Breath sounds equal bilaterally. No accessory muscle use. GASTROINTESTINAL: Abdomen soft, non-tender, nondistended. MUSCULOSKELETAL: No cyanosis, or edema. BACK: Nontender without obvious deformity. No CVA tenderness. Results - Labs CBC & Chem 7: 05/05/18 09:30 05/05/18 09:30 Laboratory Results - last 24 hr 05/05/18 05/05/18 05/05/18 09:30 09:30 09:30 ESR PT 10.2 INR 1.0 APTT 27.3 Sodium 139 Potassium 4.6 Chloride 105 Carbon Dioxide 25.6 Anion Gap 8 BUN 18 Creatinine 0.85 Estimated GFR 66 L POC Glucose Random Glucose 77 Calcium 9.7 Total Creatine Kinase 143 CK-MB (CK-2) 1.5 Troponin I Less than 0.02 L C-Reactive Protein Triglycerides Cholesterol LDL Cholesterol, Calc HDL Cholesterol Cholesterol/HDL Ratio Vitamin B12 961 TSH Thyroxine (T4) 12.3 05/05/18 05/05/18 05/05/18 09:30 09:30 18:42 ESR PT INR APTT Sodium Potassium Chloride Carbon Dioxide Anion Gap BUN Creatinine Estimated GFR POC Glucose 118 H Random Glucose Calcium Total Creatine Kinase CK-MB (CK-2) Troponin I C-Reactive Protein 0.77 H Triglycerides Cholesterol LDL Cholesterol, Calc HDL Cholesterol Cholesterol/HDL Ratio Vitamin B12 TSH 2.390 Thyroxine (T4) 05/05/18 05/06/18 21:34 05:56 ESR 12 PT INR APTT Sodium Potassium Chloride Carbon Dioxide Anion Gap BUN Creatinine Estimated GFR POC Glucose Random Glucose Calcium Total Creatine Kinase CK-MB (CK-2) Troponin I C-Reactive Protein Triglycerides 196 H Cholesterol 159 LDL Cholesterol, Calc 81 HDL Cholesterol 39.0 L Cholesterol/HDL Ratio 4.07 Vitamin B12 TSH Thyroxine (T4) - Imaging Impressions Carotid Doppler Study 05/05/18 00:00 CONCLUSION: Mild atherosclerotic plaquing at the left carotid bifurcation. No focal high-grade or hemodynamically significant stenosis is demonstrated bilaterally. Head MRA 05/05/18 00:00 CONCLUSION: 1. Examination within normal limits for age. Neck MRA 05/05/18 00:00 CONCLUSION: 1. No hemodynamically significant stenosis in the carotid arteries bilaterally. Vertebral arteries are patent. Percent stenosis is calculated using the diameter of the stenotic region over the diameter of the normal distal internal carotid artery Head CT 05/05/18 10:23 CONCLUSION: 1. Unremarkable CT scan of the brain. Head MRI 05/05/18 14:31 CONCLUSION: 1. No acute findings. Minimal white matter ischemic change. Assessment and Plan - Plan //Diplopia = Likely secondary to poor sleep, increased alcohol consumption, vacation. = CT head negative. = MRI pending = Continue home aspirin. = We will order echocardiogram, carotid ultrasound, telemetry. Consult neurology. = Carotid ultrasound negative. Telemetry of poor quality. Echocardiogram has been performed but read is pending. Patient cleared for discharge by neurology. Will follow up with neurology as outpatient. Addition of Plavix. Patient pending Holter, echocardiogram read. Patient conveyed understanding. Follow-up with neurology //Hypothyroidism. Chronic. Continue home medications //Hypertension. Chronic. Blood pressure acceptable. Continue home medications //Hyperlipidemia. Chronic. Continue medication. //Benign familial essential tremor. Continue propranolol. Discharge Planning: Discharge home. Follow with neurology as outpatient. Echocardiogram and Holter monitor read pending. Patient conveys understanding.
--- NOTE | 2018-05-06 15:06 | ECHRPT ---
Indication: CVA/TIA CONCLUSIONS The left ventricular systolic function is normal with an estimated ejection fraction in the range of 55-60%. Normal left ventricular size. Wall thickness is normal. No regional wall motion abnormalities are present. Calcification of the anterior mitral valve leaflet. Trace mitral valve regurgitation. Diffuse calcification of the aortic valve. Phfw-[id number]-pyibosbb aortic valve regurgitation. There is trace tricuspid valve regurgitation. The estimated pulmonary arterial pressure is 36.4 mmHg. Trivial pulmonary valve regurgitation. mild aortic valve regurgitation BP: / HR: Rhythm: Sinus MEASUREMENTS (Male / Female) Normal Values Technical Quality:Good 2D ECHO LV Diastolic Diameter PLAX 4.3 cm 4.2 - 5.9 / 3.9 - 5.3 cm LV Systolic Diameter PLAX 3.2 cm IVS Diastolic Thickness 1.1 cm 0.6 - 1.0 / 0.6 - 0.9 cm LVPW Diastolic Thickness 1.1 cm 0.6 - 1.0 / 0.6 - 0.9 cm LV Relative Wall Thickness 0.5 RV Internal Dim ED PLAX 3.0 cm LVOT Diameter 2.0 cm LA Systolic Diameter LX 3.7 cm 3.0 - 4.0 / 2.7 - 3.8 cm M-MODE Aortic Root Diameter MM 1.9 cm LA Systolic Diameter MM 3.9 cm LA Ao Ratio MM 2.1 AV Cusp Separation MM 1.8 cm DOPPLER AV Peak Velocity 167.0 cm/s AV Peak Gradient 11.2 mmHg AI Peak Velocity 338.0 cm/s AI Peak Gradient 45.7 mmHg AI Pressure Half Time 425.0 ms LVOT Peak Velocity 134.0 cm/s LVOT Peak Gradient 7.2 mmHg AV Area Cont Eq pk 2.5 cm MV Area PHT 3.0 cm Mitral E Point Velocity 116.0 cm/s Mitral A Point Velocity 105.0 cm/s Mitral E to A Ratio 1.1 LV E' Lateral Velocity 7.8 cm/s Mitral E to LV E' Lateral Ratio 14.9 LV E' Septal Velocity 6.2 cm/s Mitral E to LV E' Septal Ratio 18.6 TR Peak Velocity 257.0 cm/s TR Peak Gradient 26.4 mmHg Right Atrial Pressure 10.0 mmHg Pulmonary Artery Systolic Pressu 36.4 mmHg Right Ventricular Systolic Press 36.4 mmHg PV Peak Velocity 102.0 cm/s PV Peak Gradient 4.2 mmHg FINDINGS LEFT VENTRICLE The left ventricular systolic function is normal with an estimated ejection fraction in the range of 55-60%. Normal left ventricular size. Wall thickness is normal. No regional wall motion abnormalities are present. RIGHT VENTRICLE Normal right ventricular size and systolic function. LEFT ATRIUM The left atrial size is normal. RIGHT ATRIUM The right atrial size is normal. ATRIAL SEPTUM Normal atrial septal thickness without atrial level shunting by limited color doppler interrogation. AORTA The aortic root and proximal ascending aorta are normal in size on limited imaging. MITRAL VALVE Structurally normal mitral valve. Calcification of the anterior mitral valve leaflet. Trace mitral valve regurgitation. AORTIC VALVE Trileaflet aortic valve. Diffuse calcification of the aortic valve. [id number]-bdbisyeu aortic valve regurgitation. TRICUSPID VALVE Structurally normal tricuspid valve. There is trace tricuspid valve regurgitation. The estimated pulmonary arterial pressure is 36.4 mmHg. PULMONARY VALVE Trivial pulmonary valve regurgitation. VESSELS The inferior vena cava is normal in size. PERICARDIUM No pericardial effusion. Riccardo Rocha MD, FACC, [facility] [place] (Electronically Signed) Final Date:06 May 2018 15:05
[2018-05-06 16:31] LABS: Hemoglobin A1c 5.6 % (4.3-6.0)
--- NOTE | 2018-05-06 18:38 | ECG ---
Date Performed: 05/05/2018 Time Performed: 14:41:24 PTAGE: 73 years EKG: Sinus rhythm WITH FIRST DEGREE AV BLOCK MODERATE INTRAVENTRICULAR CONDUCTION DELAY MINIMAL VOLTAGE CRITERIA FOR L VH, CONSIDER NORMAL VARIANT ABNORMAL ECG NO PREVIOUS TRACING DOCTOR: Mike Pastrana Interpretating Date/Time 05/06/2018 18:37:00
[2018-05-09 09:49] LABS: Methylmalonic Acid 0.22 nmol/mL (<=0.40)
--- NOTE | 2018-05-09 16:16 | HM ---
Date Performed: 05/06/2018 Time Performed: 09:58:00 HOOKUP DATE: 05/06/18 09:58:00 AM Nancy ANALYSIS START TIME: 05/06/2018 10:03:00 AM ANALYSIS END TIME: 05/07/2018 10:07:00 AM PATIENT AGE: 73 PATIENT HEIGHT PATIENT WEIGHT DRUG LIST PATIENT DIAGNOSIS TEST NARRATIVE: The patient's average heart rate was 84 BPM. Heart rates greater than 120 B PM were noted < 1% of the time. No episodes of bradycardia were noted. No pauses exceeding 2.0 s econds were noted. 54 ventricular ectopics, which represented < 1% of the total beat count, were noted. The highest ventricular ectopic frequency occurred from 11:00 AM to 12:00 PM Nancy. During thi s time 7 VE(s) occurred. Ventricular ectopics were observed as 46 isolated beat(s), as 2 couplet(s) and as 1 run(s). 471 supraventricular ectopics, which represented < 1% of the total beat count, w ere noted. The highest supraventricular ectopic frequency occurred from 09:00 PM to 10:00 PM Nancy. D uring this time 102 SVE(s) occurred. No episodes of ST depression (defined as -1.0 mm or more) we re noted in channel 1. No episodes of ST depression (defined as -1.0 mm or more) were noted in chann el 2. No episodes of ST depression (defined as -1.0 mm or more) were noted in channel 3. TEST INTERPRETATION: At 12.04.47 pm patient had a run of atrial arrythmia with a sinus beat foll owed by 2 PACs in a row, at a rapid rate of around 150, followed by a sinus beat with 4 PACs in a row at a rate of around 150, followed a sinus beat and 2 PACs at a rate of around 140-150. The patient melissa kilpatrick goes back into Sinus rhythm . No actual atrial fibrillation is seen on this holter monitor. There are various PACs and rare coupl ets as well. No significant ventricular ectopy present, with no ventricular tachycardia and no pauses present. There were no heart block present. No diary included. Signed by : Matt Morris
[2018-05-10 03:50] LABS: DS DNA Ab (Crithidia) NEGATIVE (NEGATIVE)
== END 2018-05-06 12:07 | disposition home or self-care (01) ==
LOC: NEPC 08:58 → NEPFCDU 08:58 → INTOOBSV 15:18 → NEDA 15:18 → NEPFCDU 17:17
PROVIDERS: ADMIT Internal Medicine; ATTEND Internal Medicine